=== PATIENT | male | born 1990 | race Caucasian/White ===

== ENCOUNTER 2018-03-25 18:27 | Emergency (ER) | payer OTHER ==
[~2018-03-25] VITALS: Ht 177.8 cm; Wt 72.8 kg
[~2018-03-25 18:27] MED LIST: ALBU18HF INHALATION; FEXO180T61 PO; PRED20TA PO
[2018-03-25 18:42] VITALS: Ht 177.8 cm; Wt 72.8 kg
--- NOTE | 2018-03-25 19:43 | ERD ---
ER Documentation Chief Complaint Chief Complaint CHEST PRESSURE X3DAYS WITH LEGT ARM PAIN AND TINGLING HPI THis is a 27 year old male with a history of chest pain. Pain is non-exertional, denies fever, nausea or vomiting, no leg swelling, no hemoptysis, no history of immobility. He denies fever, this initially started as a tingling in the left arm Chandra is a pinch in his chest, it is now resolved. There is no family history of any cardiac history. ROS All systems reviewed and are negative except as per history of present illness. Medications Home Meds Active Scripts Albuterol Sulfate* (Ventolin HFA*) 18 Gm Hfa.aer.ad, 2 PUFF INHALATION Q4H, #1 INHALER Prov:JAMAL ANSARI MD 01/01/16 Prednisone* (Prednisone*) 20 Mg Tab, 40 MG PO DAILY for 4 Days, TAB Prov:JAMAL ANSARI MD 01/01/16 Fexofenadine Hcl* (Clotilde*) 180 Mg Tablet, 180 MG PO DAILY, #30 TAB Prov:JAMAL ANSARI MD 01/01/16 Allergies Allergies: Coded Allergies: No Known Allergy (Unverified , 03/25/18) PMhx/Soc Medical and Surgical Hx: pt denies Medical Hx, pt denies Surgical Hx Hx Alcohol Use: No Hx Substance Use: No Hx Tobacco Use: No Smoking Status: Never smoker FmHx Family History: No diabetes, No coronary disease Physical Exam Vitals Vital Signs Date Temp Pulse Resp B/P (MAP) Pulse Ox O2 O2 Flow FiO2 Time Delivery Rate 03/25/18 61 11 127/91 100 Room Air 19:44 (103) 03/25/18 98.3 63 19 130/84 98 18:42 (99) Physical Exam Const: No acute distress Head: Atraumatic Eyes: Normal Conjunctiva ENT: Normal External Ears, Nose and Mouth. Neck: Full range of motion. No meningismus. Resp: Clear to auscultation bilaterally Cardio: Regular rate and rhythm, no murmurs Abd: Soft, non tender, non distended. Normal bowel sounds Skin: No petechiae or rashes Back: No midline or flank tenderness Ext: No cyanosis, or edema Neur: Awake and alert Psych: Normal Mood and Affect Procedures/MDM This is a healthy 27-year-old male who presents for evaluation chest pain, now resolved patient's thoracic symptoms have stabilized while in the department and are stable for outpatient follow up. Exam and work up not consistent w/ ischemia, arrhythmia, PE or dissection. EKG: Rate/Rhythm: Normal Sinus Rhythm QRS, ST, T-waves: No changes consistent w/ acute ischemia Impression: No evidence of ischemia or arrhythmia Departure Diagnosis: Primary Impression: Chest pain Chest pain type: unspecified Qualified Codes: R07.9 - Chest pain, unspecified Condition: Stable Patient Instructions: Chest Pain, Uncertain Cause NAVIN OKEEFE MD Mar 25, 2018 19:43
[2018-03-25 20:49] VITALS: BP 127/81; PULSE 57; RESP 18
== END 2018-03-25 20:51 | disposition home or self-care (01) ==
LOC: E/R 18:27
DX: R07.9 Chest pain, unspecified (principal)
CPT/HCPCS: 93005; Z7502